=== PATIENT | female | born 1960 | race Two or more races ===

== ENCOUNTER 2017-04-26 20:47 | Inpatient (IN) | payer BC ==
[~2017-04-26] VITALS: Ht 144.8 cm; Wt 37.8 kg
[2017-04-26 20:53] VITALS: BP 128/83
--- NOTE | 2017-04-26 21:20 | NUR ---
AMBULATED TO ER BED 8
--- NOTE | 2017-04-26 21:30 | NUR ---
56/F c/o nausea and vomiting x3 weeks. Pt also c/o epigastric abdominal pain, non radiating, 8/10. No vomiting noted while pt in ED. Abd soft, non tender, active bowel sounds x4 quadrants. Denies diarrhea, constipation. Denies s/s of UTI. AOX4, belarusian speaking. VSS.
--- NOTE | 2017-04-26 21:38 | NUR ---
Patient being evaluated by Dr. Orourke at bedside.
--- NOTE | 2017-04-26 21:44 | NUR ---
Patient being evaluated by Dr. Orourke at bedside.
[2017-04-26] MEDS ORDERED: NACL 0.9% 2,000 ML IV ONE (21:45)
[2017-04-26] MEDS ORDERED: ONDANSETRON 4 MG/2 ML VIAL IVP ONE (21:45)
--- NOTE | 2017-04-26 21:58 | NUR ---
X-Ray at bedside.
--- NOTE | 2017-04-26 22:18 | NUR ---
EKG DONE, UA SENT TO LAB
[2017-04-26 22:20] LABS: HEMATOCRIT 42.2 % (36-48); HEMOGLOBIN 13.9 g/dL (12.0-16.0); MEAN CORPUSCULAR HEMOGLOBIN 27 pg (27-31); MEAN CORPUSCULAR HGB CONC 33 g/dL (33-37); MEAN CORPUSCULAR VOLUME 83 fL (80-94); PLATELET COUNT (AUTO) 409 K/uL (140-450); RED BLOOD CELL COUNT(AUTO) 5.09 MIL/uL (4.20-5.40); RED CELL DISTRIBUTION WIDTH 14.4 % (11.6-13.7); WHITE BLOOD COUNT (AUTO) 21.1 K/uL (4.8-10.8)
[2017-04-26] MEDS ORDERED: PANT40EC PO (22:20)
[2017-04-26] MEDS ORDERED: WARF3TAB PO (22:20)
[2017-04-26 22:24] LABS: APPEARANCE,URINE CLEAR (CLEAR); BILIRUBIN,URINE 1+ (NEGATIVE); BLOOD, URINE TRACE-I (NEGATIVE); COLOR,URINE YELLOW (YELLOW); LEUKOCYTE ESTERASE ,URINE TRACE (NEGATIVE); NITRITE, URINE NEGATIVE (NEGATIVE); PH,URINE 7.5 (5.0-9.0); UGLUCOSE NEGATIVE (NEGATIVE)
[2017-04-26 22:34] LABS: ANION GAP 8.3 (8-16); CARBON DIOXIDE 29.9 mmol/L (21-32); CREATININE 0.4 mg/dL (0.6-1.3); POTASSIUM 3.2 mmol/L (3.5-5.1)
[2017-04-26] MEDS ORDERED: MORPHINE SULFATE 4 MG/ML SYR IVP ONE (22:35)
[2017-04-26 22:40] LABS: ALBUMIN 2.2 g/dL (3.4-5.0); TOTAL BILIRUBIN 0.7 mg/dL (0.0-1.0)
[2017-04-26 22:59] LABS: LYMPHOCYTES % (MANUAL) 3 % (20-46); MONOCYTES % (MANUAL) 7 % (5-12)
[2017-04-26 23:02] LABS: RBC,URINE 0-5 (RARE) /HPF (0-5)
[2017-04-26 23:08] LABS: PROTHROMBIN TIME > 120.0 secs (10.8-13.4)
--- NOTE | 2017-04-27 00:16 | NUR ---
Patient appears to be resting comfortably in bed. VSS. Respirations even and unlabored. No distress noted.
--- NOTE | 2017-04-27 00:30 | NUR ---
Patient taken to CT via gurney.
[2017-04-27] MEDS ORDERED: MORPHINE SULFATE 4 MG/ML SYR IVP ONE (01:15)
[2017-04-27] MEDS ORDERED: METOCLOPRAMIDE 10 MG/2 ML INJ VIAL IVP ONE (01:15)
[2017-04-27] MEDS ORDERED: ONDANSETRON 4 MG/2 ML VIAL IVP ONE (02:05)
--- NOTE | 2017-04-27 02:29 | NUR ---
Patient appears to be resting comfortably in bed. Vital Signs within normal limits. Respirations even and unlabored.
--- NOTE | 2017-04-27 03:40 | NUR ---
Pt transferred to Tele 116 via [facility] on cardiac monitoring.
[2017-04-27 03:47] VITALS: BP 128/80
--- NOTE | 2017-04-27 03:47 | NUR ---
PATIENT IS CURRENTLY AWAKE ALERT ORIENTED RESTING IN BED REPORT RECEIVED AT BEDSIDE BY NEGRO COTE.PATIENT ABLE TO WALK WITH ASSISTANCE TO THE BATHROOM AND BACK TO BED.PATIENT WAS PLACED ON FALL PRECAUTIONS AND EDUCATED TO CALL FOR ASSISTANCE PATIENT VERBALIZES UNDERSTANDING.SKIN CHECK DONE WITH PROPERTY HANDLER NURSE PRUDENCE AND PATIENT'S SKIN IS CURRENTLY DRY BUT INTACT.VITALS TAKEN AND ARE CURRENTLY WNL AND TELEMONITOR IN PLACE.PATIENT EDUCATED ON PLAN OF CARE AND ORIENTED TO ROOM AND CALL LIGHT PATIENT VERBALIZES UNDERSTANDING.
--- NOTE | 2017-04-27 04:00 | NUR ---
[facility] WAS COLLECTED AND WILL BE SEND TO THE LAB.
[2017-04-27] MEDS ORDERED: ONDANSETRON 4 MG/2 ML VIAL IVP PRN (04:45)
[2017-04-27] MEDS ORDERED: MORPHINE SULFATE 2 MG/ML SYR IVP PRN (04:45)
[2017-04-27] MEDS ORDERED: PROMETHAZINE 25 MG/ML VIAL IVP PRN (04:45)
--- NOTE | 2017-04-27 04:49 | NUR ---
I ASKED MD IF HE WANTS TO KEEP THE PATIENT NPO OR IF HE WANTS TO ORDER A DIET FOR THE PATIENT. WANTED TO ORDER REGULAR BUT HE DECIDED HE DOESN'T WANT TO ORDER ANY DIET AT THIS TIME. STATES,"I WILL GIVE A DIET ORDER AT A LATER TIME." NO MORE ORDERS GIVEN.
--- NOTE | 2017-04-27 04:49 | NUR ---
I SPOKE TO MD RENDON BROOM BUNDLER FOR MD PAINTING AND I INFORMED HIM THAT PATIENT IS A NEW ADMIT AND NEEDS ORDERS HE GAVE TELEPHONE ORDERS WILL CARRY ORDERS OUT. WAS INFORMED OF ALL LABS AND CURRENT PATIENT STATUS.
--- NOTE | 2017-04-27 04:52 | NUR ---
I CALLED [facility] TO MAKE SURE THE NEW MEDS ARE PUT IN.
--- NOTE | 2017-04-27 05:30 | NUR ---
PATIENT RESTING COMFORTABLY IN BED AT THIS TIME.[facility] CALLED AGAIN AND ASKED TO PLEASE VERIFY THE NEW MEDICATIONS ORDERED SINCE THE MEDS HAVEN'T BEEN VERIFIED. THE PHARMACIST SAID SHE WILL VERIFY THEM.
[2017-04-27] MEDS: ONDANSETRON 4 MG/2 ML VIAL IVP PRN ×3 (05:54→14:29)
[2017-04-27] MEDS: POTASSIUM CHL 20 MEQ/D5-1/2NS 1,000 ML IV SCH ×2 (05:54→14:45)
--- NOTE | 2017-04-27 05:54 | NUR ---
PATIENT WAS MEDICATED FOR N/V IVF STARTED BY NEGRO DUMONT ORDERED.PATIENT NEEDS MET WILL CONTINUE TO MONITOR.
--- NOTE | 2017-04-27 07:29 | NUR ---
PATIENT STABLE REPORT ENDORSED TO NEGRO BARBA SHE WILL RESUME CARE OF THE PATIENT.
--- NOTE | 2017-04-27 07:30 | NUR ---
ENDORSEMENT RECEIVED FROM TALENT ACQUISITION COORDINATOR NURSE. PATIENT'S RESPIRATION EVEN, UNLABOR. PATIENT AWAKE, ALERT. SKIN DRY AND WARM. IV INFUSING WELL. CALL LIGHT WITHIN REACH. WILL CONTINUE TO MONITOR
--- NOTE | 2017-04-27 07:30 | NUR ---
MD PAINTING CALLED BACK AND I ASKED HIM IF HE WOULD LIKE TO ORDER A DIET FOR THE PATIENT BECAUSE THE PATIENT HAS NO DIET ORDER AT THIS TIME MD GAVE ORDERS FOR CLEAR LIQUID DIET. ORDERS WILL BE CARRIED OUT.
[2017-04-27 08:00] VITALS: BP 137/84
--- NOTE | 2017-04-27 09:33 | NUR ---
PATIENT AWAKE, ALERT. RESPIRATION EVEN, UNLABOR. COMPLAINED OF NAUSEA. MED WAS GIVEN PER ORDER. FAMILY AT BEDSIDE. CALL LIGHT WITHIN REACH. WILL CONTINUE TO MONITOR
[2017-04-27] MEDS ORDERED: PHYTONADIONE 10 MG in NACL 0.9% 50 ML IV SCH (09:49)
--- NOTE | 2017-04-27 09:59 | NUR ---
PATIENT HAS BEEN SCREENED AND CATEGORIZED HIGH NUTRITION RISK. PATIENT WILL BE SEEN WITHIN 1-2 DAYS OF ADMISSION. 04/27/17-04/28/[address]
--- NOTE | 2017-04-27 10:45 | NUR ---
OLD IV 18G WAS REMOVED FROM LEFT AC WITH CATHETER TIP INTACT. NEW IV 20G WAS PLACED ON RIGHT AC. INFUSING WELL. PATIENT TOLERATED WELL. FAMILY AT BEDSIDE. CALL LIGHT WITHIN REACH. WILL CONTINUE TO MONITOR.
[2017-04-27 12:00] VITALS: BP 140/82
--- NOTE | 2017-04-27 12:28 | NUR ---
PATIENT AWAKE, ALERT. RESPIRATION EVEN, UNLABOR. DENIED PAIN, N/V AT THIS TIME. FAMILY AT BEDSIDE. CALL LIGHT WITHIN REACH. WILL CONTINUE TO MONITOR
[2017-04-27] MEDS ORDERED: INFLUENZA VIRUS VACCINE QUAD 0.5 ML SYR IMVAC PRN (12:55)
--- NOTE | 2017-04-27 13:52 | NUR ---
JET CALLED BACK FROM [facility] PATIENT CAN GO TO [facility] ROOM 292 BED 1 TO GIVE REPORT [phone] EXT [id number] AND ARRANGED [place] WITH KEN WILL CALL
--- NOTE | 2017-04-27 14:30 | NUR ---
PATIENT AWAKE, ALERT. RESPIRATION EVEN. DENIED PAIN AT THIS TIME. COMPLAINED OF NAUSEA AND VOMIT X1. MED WAS GIVEN PER ORDER. CALL LIGHT WITHIN REACH. WILL CONTINUE TO MONITOR
--- NOTE | 2017-04-27 15:20 | NUR ---
DISCHARGE INSTRUCTION WAS GIVEN TO PATIENT AND FAMILY. PAGE MAKEUP SYSTEM OPERATOR WAS IN USE SALINA [id number]. PATIENT VERBALIZED UNDERSTANDING. CALLED AND GIVE REPORT TO AIMEE RN AT [facility]. WILL CONTINUE TO MONITOR
--- NOTE | 2017-04-27 15:50 | NUR ---
REPORT AND PATIENT'S RECORD WERE GIVEN TO THE EMT. PATIENT'S GOWN WAS CHANGED. IV FLUID WAS DISCONTINUED. PATIENT IS STABLE AT THIS TIME. PATIENT IS TRANSFERRED OUT IN THE GURNEY ACCOMPANIED BY EMT AND FAMILY.
--- NOTE | 2017-04-28 08:54 | NUR ---
RETRO ER REPORT AND H&P FAXED TO [facility] [phone] PHONE [facility] [phone]
== END 2017-04-27 15:50 | disposition short-term general hospital (02) | DRG 392 ==
LOC: MED 20:47 → MTU 04-27 03:23
PROVIDERS: ADMIT Internal Medicine; ATTEND Internal Medicine
DX: R10.9 Unspecified abdominal pain (principal); D68.9 Coagulation defect, unspecified; R18.8 Other ascites; R16.0 Hepatomegaly, not elsewhere classified; E87.6 Hypokalemia; D72.829 Elevated white blood cell count, unspecified; E07.9 Disorder of thyroid, unspecified
CPT/HCPCS: 36415; 70450; 71010; 80053; 81001; 83690; 84484; 85025; 85610; 85730; 87081; 87086; 93005; 96361; 96374; 96375; 96376; 99285; J2270; J2405; J2765; J3430; J7030; Q0092; Q9967